=== PATIENT | female | born 1975 | race Caucasian/White ===

== ENCOUNTER → 2023-12-11 13:39 | Outpatient (REF) | payer BC, SELFPAY | LOC: HWRAD 13:39 | PROVIDERS: ATTENDING PHYSICIAN Internal Medicine | DX: M89.8X1 Other specified disorders of bone, shoulder (principal); R07.81 Pleurodynia | CPT/HCPCS: 71250 ==

== ENCOUNTER → 2025-04-15 07:35 | Outpatient (REF) | payer BC, SELFPAY | LOC: HWRAD 07:35 | PROVIDERS: ATTENDING PHYSICIAN Obstetrics & Gynecology; FAMILY PHYSICIAN Internal Medicine | DX: Z01.419 Encounter for gynecological examination (general) (routine) without abnormal findings (principal); N92.1 Excessive and frequent menstruation with irregular cycle | CPT/HCPCS: 76830; 76856 ==